=== PATIENT | female | born 1970 | race Two or more races ===

== ENCOUNTER → 2024-09-01 | Outpatient (CLI) | payer MEDICAID ==
--- NOTE | 2024-09-01 12:44 | RADIOLOGY REPORT ---
EXAM: CT CT HEAD HISTORY: FACIAL PAIN COMPARISON: None TECHNIQUE: Axial images of the head were obtained and reformatted in coronal and sagittal planes. All CT scans at this medical facility are performed using dose modulation techniques as appropriate t o a performed exam including the following: Automated exposure control was utilized; adjustment of th e MA and/or KV according to patient size; and use of iterative reconstruction technique. CT Dose: CTDI volume is mGy. Dose-length product is mGy*cm FINDINGS: There is no evidence of acute intracranial hemorrhage, mass, mass effect midline shift. There is no h ydrocephalus or extra-axial fluid collection. Morrissey-white matter differentiation is maintained. The visualized paranasal sinuses and mastoid air cells are clear. The calvarium is intact. IMPRESSION: 1. No acute intracranial process. HS:Y
--- NOTE | 2024-09-01 13:31 | RADIOLOGY REPORT ---
_ Procedure: CT CT NECK SOFT TISSUES [facility] Study Date and Requested Time: 2024 12:28 PM History: FACIAL PAIN Comparison: None Dose: CTDI: 15.98 mGy DLP: 409.77 mGycm Technique: Multiplanar images obtained through the neck without contrast Findings: Nasopharynx, oropharynx, hypopharynx, and larynx normal in caliber without evidence of focal mass. Pa rotid, submandibular, and sublingual glands within normal limits. Tongue within normal limits. Cervical soft tissues within normal limits with no evidence of significant cervical lymphadenopathy. Thyroid gland is not definitely visualized surgical clips noted over the thyroid bed consistent with thyroidectomy. Surgical clips are noted anterior to the sternocleidomastoid muscle at the level of th e thyroid cartilage. No evidence of superior mediastinal lymphadenopathy. 7 mm lytic lesion within the posterior C6 vertebral body with additional 6 mm lytic lesion of the pos terior T3 vertebral body. Impression: No evidence of significant abnormality involving the cervical soft tissues within the limitations of noncontrast study. Lesions within the C6 and T3 vertebral bodies. Metastasis is within the differential..
== END | disposition home or self-care (01) ==
LOC: RAD 12:13
PROVIDERS: ATTEND Physician Assistant
DX: R51.9 Headache, unspecified (principal)
CPT/HCPCS: 70450; 70490

== ENCOUNTER 2025-01-16 11:54 | Outpatient (CLI) | payer MEDICAID ==
[2025-01-15 11:32] LABS: CREATININE 0.67 MG/DL (0.40-0.90); TOTAL CARBON DIOXIDE 27.2 MMOL/L (24-32); eGFR > 90 ML/MIN
--- NOTE | 2025-01-16 13:27 | RADIOLOGY REPORT ---
CT CT FACIAL BONES/SOFT TISSUE INDICATION: DISORDER OF BONE,OTALGIA,RIGHT EAR TECHNIQUE: CT of the temporal bones were performed with high resolution. CT scans at this facility use dose modulation, iterative reconstruction, and/or weight based dosing when appropriate to reduce radiation dose to as low as reasonably achievable. No contrast. COMPARISON: None available. FINDINGS: RIGHT EAR: External Ear: The external ear and external auditory canal are normal. The tympanic membrane is normal. Middle Ear: The epitympanic and mesotympanic cavities are clear. Ossicles: The malleus, incus, and stapes are normal. Mastoid Air Cells: Normally developed and without opacification or erosion. Internal Auditory Canal: Normal. Inner Ear: The cochlea and vestibule are normally developed. Otic capsule bone mineralization is normal. Semicircular Canals: All three semicircular canals are normally developed. No superior semicircular canal dehiscence. Facial Nerve: The facial nerve canal's labyrinthine, tympanic, and mastoid segments are normal. Canals and Vasculature: The vestibular and cochlear aqueducts are normal. The petrous carotid canal, jugular foramen and hypoglossal canals are normal. LEFT EAR: External Ear: The external ear and external auditory canal are normal. The tympanic membrane is normal. Middle Ear: The epitympanic and mesotympanic cavities are clear. Ossicles: The malleus, incus, and stapes are normal. Mastoid Air Cells: Normally developed and without opacification or erosion. Internal Auditory Canal: Normal. Inner Ear: The cochlea and vestibule are normally developed. Otic capsule bone mineralization is normal. Semicircular Canals: All three semicircular canals are normally developed. No superior semicircular canal dehiscence. Facial Nerve: The facial nerve canal's labyrinthine, tympanic, and mastoid segments are normal. Canals and Vasculature: The vestibular and cochlear aqueducts are normal. The petrous carotid canal, jugular foramen and hypoglossal canals are normal. OTHER: Partially Visualized Intracranial Structures: Normal. Soft Tissues: Normal Other: None IMPRESSION: Normal temporal bone CT.
--- NOTE | 2025-01-16 18:42 | RADIOLOGY REPORT ---
EXAM: MR MRI LUMBAR SPINE INDICATION: DISORDER OF BONE TECHNIQUE: Multiplanar, multisequence MR images of the lumbar spine were obtained with and without the administration of IV contrast. COMPARISON: MR MRI THORACIC SPINE on DOS: 01/16/25 FINDINGS: [ANATOMY]: Five lumbar-type vertebral bodies are present. The most inferior well-formed disc space will be referred to as L5-S1 for purposes of numbering in this report. [VERTEBRAL BODIES]: In regards to the clinical question, focal areas of T1 hyperintense replacement of the L1 and T12 vertebral bodies without bony intramedullary expansion areas of T2 hyperintensity and possible areas of internal fat suppression with the associated inconspicuous enhancement. Imaging findings are nonspecific however given T1 signal is primarily brighter than intervertebral disc, consideration for atypical vertebral body hemangioma. Consider further evaluation with CT to assess for corduroy /stippled appearance. [SPINAL CANAL]: The conus medullaris is normal in signal and morphology, terminating at the L1-L2 level. [FACETS]: Mild bilateral multilevel facet arthropathy. [OTHER]: None. LEVEL BY LEVEL DISCUSSION: [T12-L1]: Unremarkable. [L1-L2]: Unremarkable. [L2-L3]: Broad-based posterior disc protrusion, central, 2-3 mm. Minimal asymmetric left inferior foraminal extension. Mild bilateral foraminal narrowing [L3-L4]: Trace 2 mm central disc protrusion. Mild bilateral foraminal narrowing. [L4-L5]: Unremarkable. [L5-S1]: 3-4 mm broad-based posterior disc protrusion with bilateral inferior foraminal extension. Mild bilateral facet arthropathy. At least moderate bilateral foraminal narrowing. IMPRESSION: 1. In regards to the clinical question, focal areas of T1 hyperintense replacement of the L1 and T12 vertebral bodies without bony intramedullary expansion areas of T2 hyperintensity and possible areas of internal fat suppression with the associated inconspicuous enhancement. 2. Imaging findings are nonspecific however given T1 signal is primarily brighter than intervertebral disc, consideration for atypical vertebral body hemangioma. 3. Consider further evaluation with CT to assess for corduroy /stippled appearance. 4. Multilevel spondylosis and facet arthropathy with foraminal narrowing as detailed above.
[2025-01-16] MEDS ORDERED: GADOTERATE MEGLUMINE 7.5 MMOL/15 ML VIAL IV ONE (19:06)
--- NOTE | 2025-01-17 09:10 | RADIOLOGY REPORT ---
PROCEDURE: MR MRI THORACIC SPINE INDICATION: DISORDER OF BONE Exam Date: 01/16/2025 02:14 PM COMPARISON: None TECHNIQUE: MRI thoracic spine without intravenous contrast. FINDINGS: Alignment in the thoracic spine is maintained. Vertebral body heights are preserved. Diffusely increased T1 and T2 signal throughout the T12 and L1 vertebral bodies. No cortical destruction. No abnormal paraspinal soft tissue. No encroachment of the central canal. A smaller T1-T2 hyperintense lesion is seen within the posterior aspect of the T3 vertebral body. Marrow signal is heterogeneous throughout. No obvious cortical destruction. Central canal is widely patent no significant focal disc herniation. No obvious nerve root impingement. Paraspinal soft tissues are unremarkable. IMPRESSION: Marrow replacing lesions throughout the T12 and L1 vertebral bodies with signal characteristics that are most consistent with hemangiomas. A similar lesion is seen at T3. Recommend CT of the thoracic and lumbar spine to assess for any supporting imaging features. Also recommend a 6 month MRI follow-up for reassessment.
== END 2025-01-16 23:59 | disposition home or self-care (01) ==
LOC: RAD 11:54
PROVIDERS: ATTEND Family Medicine
DX: M51.27 Other intervertebral disc displacement, lumbosacral region (principal); H92.01 Otalgia, right ear; M89.9 Disorder of bone, unspecified; M54.2 Cervicalgia; M48.07 Spinal stenosis, lumbosacral region; M47.817 Spondylosis without myelopathy or radiculopathy, lumbosacral region; M47.814 Spondylosis without myelopathy or radiculopathy, thoracic region
CPT/HCPCS: 36415; 72157; 72158; 80053; A9575